=== PATIENT | male | born 1990 | race Caucasian/White ===

== ENCOUNTER 2017-09-22 14:51 | Emergency (ER) | payer BC, OTHER ==
[~2017-09-22] VITALS: Ht 180.3 cm; Wt 86.4 kg
[~2017-09-22 14:51] MED LIST: AMOX500T PO
[2017-09-22 14:53] VITALS: BP 127/76; PULSE 90; RESP 13; TEMP 98.6; O2SAT 97
[2017-09-22] MEDS ORDERED: DEPA250T2 PO (15:33)
[2017-09-22] MEDS ORDERED: ABIL10TA8 PO (15:33)
[2017-09-22 15:57] LABS: AUTOMATED NEUTROPHIL # 9.8 TH/MM3 (1.8-7.7); BASOPHIL # 0.1 TH/MM3 (0-0.2); BASOPHIL % 0.7 % (0.0-2.0); EOSINOPHIL # 0.2 TH/MM3 (0-0.4); EOSINOPHIL % 1.4 % (0.0-4.0); HEMATOCRIT 47.9 % (39.0-51.0); HEMOGLOBIN 16.5 GM/DL (13.0-17.0); LYMPH % 12.5 % (9.0-44.0); LYMPHOCYTE # 1.5 TH/MM3 (1.0-4.8); MEAN CELL VOLUME 90.5 FL (80.0-100.0); MEAN CORPUSCULAR HEMOGLOBIN 31.1 PG (27.0-34.0); MEAN CORPUSCULAR HGB CONC 34.4 % (32.0-36.0); MEAN PLATELET VOLUME 7.5 FL (7.0-11.0); MONO % 6.3 % (0.0-8.0); MONOCYTE # 0.8 TH/MM3 (0-0.9); NEUT % 79.1 % (16.0-70.0); PLATELET COUNT 279 TH/MM3 (150-450); RED CELL DISTRIBUTION WIDTH 13.9 % (11.6-17.2); WHITE BLOOD COUNT 12.3 TH/MM3 (4.0-11.0)
--- NOTE | 2017-09-22 15:57 | PD ---
HPI Chief Complaint: Psychiatric Symptoms Time Seen by Provider: 15:26 Travel History International Travel<30 days: No Contact w/Intl Traveler<30days: No Traveled to known affect area: No History of Present Illness HPI 26-year-old male presents to the emergency department complaining of suicidal ideation and a plan since this morning. He attempted suicide last night by taking 6 Unasyn and was hoping that he wouldn't wake up. His plan is to take something to make him go unconscious and vomit so he chokes on it. Has history of suicidal attempt by taking 24 pills of acetaminophen. Denies homicidal ideations. Symptoms are aggravated from getting kicked out of his house by his mother. He is out on [place] and is not supposed to be around his father, and his mother was allowing him to stay at the house, and she became paranoid and kicked him out. He reports history of schizophrenia and takes Depakote and Abilify. He reports that the dreams that says plans out his days for him the next day. He denies auditory or visual hallucinations. Denies illicit drug use. Reports occasional alcohol use and says his elbow use increases when he is in a depressed mood. He denies alcohol use today. Symptoms are aggravated by getting kicked out of the house. Onset this morning. No known relieving factors. No known allergies. Denies significant past medical history. History of schizophrenia. Has no other medical complaints. Denies chest pain, shortness breath, abdominal pain, nausea, vomiting, fevers. No primary care provider. No psychiatry. No other modifying factors or associated signs and symptoms. PFSH Past Medical History Anxiety: Yes Schizophrenia: Yes ?: Not Social History Alcohol Use: No Tobacco Use: Yes Substance Use: Yes Allergies-Medications (Allergen,Severity, Reaction): Coded Allergies: No Known Allergies (Unverified Adverse Reaction, Unknown, 09/22/17) Reported Meds & Prescriptions Reported Meds & Active Scripts Active Reported Abilify (Aripiprazole) 10 Mg Tab 10 Mg PO HS Depakote DR (Divalproex Sodium) 250 Mg Tabdr 250 Mg PO BID Amoxil (Amoxicillin) 500 Mg Tab 750 Mg PO BID Review of Systems Except as stated in HPI: all other systems reviewed are Neg Physical Exam Narrative GENERAL: Well-nourished, well-developed male patient, in no acute distress SKIN: Warm and dry. HEAD: Atraumatic. Normocephalic. EYES: Pupils equal and round. ENT: Mucosa pink and moist. NECK: Supple. Trachea midline. CARDIOVASCULAR: Regular rate and rhythm. No murmur appreciated. RESPIRATORY: No accessory muscle use. Clear to auscultation. Breath sounds equal bilaterally. GASTROINTESTINAL: Abdomen soft, non-tender, nondistended. Hepatic and splenic margins not palpable. Bowel sounds are active 4 quadrants. MUSCULOSKELETAL: No obvious deformities. No clubbing. No cyanosis. No edema. BACK: No CVA tenderness. NEUROLOGICAL: Awake and alert. Oriented 3. No obvious cranial nerve deficits. Motor grossly within normal limits. Normal speech. Moves all extremities. 5/5 strength to all extremities. PSYCHIATRIC: No delusional thought processes. No hallucinations. Data Data Last Documented VS Vital Signs Date Time Temp Pulse Resp B/P (MAP) Pulse Ox O2 Delivery O2 Flow Rate FiO2 09/22/17 14:53 98.6 90 13 127/76 (93) 97 Orders Orders Complete Blood Count With Diff (09/22/17 15:02) Comprehensive Metabolic Panel (09/22/17 15:02) Psych Screen (09/22/17 15:02) Drug Screen, Random Urine (09/22/17 15:02) Alcohol (Ethanol) (09/22/17 15:02) Salicylates (Aspirin) (09/22/17 15:02) Tylenol (Acetaminophen) (09/22/17 15:02) Thyroid Stimulating Hormone (09/22/17 15:26) Labs Laboratory Tests Test 09/22/17 15:25 White Blood Count 12.3 TH/MM3 Red Blood Count 5.30 MIL/MM3 Hemoglobin 16.5 GM/DL Hematocrit 47.9 % Mean Corpuscular Volume 90.5 FL Mean Corpuscular Hemoglobin 31.1 PG Mean Corpuscular Hemoglobin Concent 34.4 % Red Cell Distribution Width 13.9 % Platelet Count 279 TH/MM3 Mean Platelet Volume 7.5 FL Neutrophils (%) (Auto) 79.1 % Lymphocytes (%) (Auto) 12.5 % Monocytes (%) (Auto) 6.3 % Eosinophils (%) (Auto) 1.4 % Basophils (%) (Auto) 0.7 % Neutrophils # (Auto) 9.8 TH/MM3 Lymphocytes # (Auto) 1.5 TH/MM3 Monocytes # (Auto) 0.8 TH/MM3 Eosinophils # (Auto) 0.2 TH/MM3 Basophils # (Auto) 0.1 TH/MM3 CBC Comment DIFF FINAL Differential Comment MDM Medical Decision Making Medical Screen Exam Complete: Yes Emergency Medical Condition: Yes Medical Record Reviewed: Yes Differential Diagnosis Suicidal ideation, depression, medical clearance for psychological evaluation Narrative Course Patient presents voluntarily. Physical examination and vital signs are essentially unremarkable. Patient has no medical complaints to report. Psych screen has been ordered. If the laboratory results are unremarkable, the patient will be medically cleared for psychiatric evaluation and disposition. Diagnosis Primary Impression: Encounter for psychological evaluation Condition: Stable Crystal Albarado Sep 22, 2017 15:57
[2017-09-22 16:13] LABS: ALBUMIN 4.6 GM/DL (3.4-5.0); ALT (GPT) 32 U/L (12-78); AST (GOT) 21 U/L (15-37); BICARBONATE 23.3 MEQ/L (21.0-32.0); BLOOD UREA NITROGEN 9 MG/DL (7-18); CALCIUM 8.4 MG/DL (8.5-10.1); CHLORIDE 107 MEQ/L (98-107); CREATININE 0.89 MG/DL (0.60-1.30); GLOMERULAR FILTRATION RATE 103 ML/MIN (>89); GLUCOSE,RANDOM 76 MG/DL (74-106); SODIUM (NA) 140 MEQ/L (136-145)
[2017-09-22 16:15] LABS: ALKALINE PHOSPHATASE 81 U/L (45-117); TOTAL BILIRUBIN ADULT 1.3 MG/DL (0.2-1.0); TOTAL PROTEIN 8.3 GM/DL (6.4-8.2)
[2017-09-22 16:28] LABS: ACETAMINOPHEN LESS THAN 2.0 MCG/ML (10.0-30.0)
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
--- NOTE | 2017-09-22 21:00 | PD ---
Physical Exam Date Seen by Provider: Sep 22, 2017 Time Seen by Provider: 20:58 Narrative For full history and physical examination please see previous provider's notes. Data Data Last Documented VS Vital Signs Date Time Temp Pulse Resp B/P (MAP) Pulse Ox O2 Delivery O2 Flow Rate FiO2 09/22/17 14:53 98.6 90 13 127/76 (93) 97 Orders Orders Complete Blood Count With Diff (09/22/17 15:02) Comprehensive Metabolic Panel (09/22/17 15:02) Psych Screen (09/22/17 15:02) Drug Screen, Random Urine (09/22/17 15:02) Alcohol (Ethanol) (09/22/17 15:02) Salicylates (Aspirin) (09/22/17 15:02) Tylenol (Acetaminophen) (09/22/17 15:02) Valproic Acid (Depakene) (09/22/17 16:06) Thyroid Stimulating Hormone (09/22/17 15:25) Ed Discharge Order (09/22/17 20:57) Labs Laboratory Tests Test 09/22/17 15:25 09/22/17 16:30 White Blood Count 12.3 TH/MM3 Red Blood Count 5.30 MIL/MM3 Hemoglobin 16.5 GM/DL Hematocrit 47.9 % Mean Corpuscular Volume 90.5 FL Mean Corpuscular Hemoglobin 31.1 PG Mean Corpuscular Hemoglobin Concent 34.4 % Red Cell Distribution Width 13.9 % Platelet Count 279 TH/MM3 Mean Platelet Volume 7.5 FL Neutrophils (%) (Auto) 79.1 % Lymphocytes (%) (Auto) 12.5 % Monocytes (%) (Auto) 6.3 % Eosinophils (%) (Auto) 1.4 % Basophils (%) (Auto) 0.7 % Neutrophils # (Auto) 9.8 TH/MM3 Lymphocytes # (Auto) 1.5 TH/MM3 Monocytes # (Auto) 0.8 TH/MM3 Eosinophils # (Auto) 0.2 TH/MM3 Basophils # (Auto) 0.1 TH/MM3 CBC Comment DIFF FINAL Differential Comment Blood Urea Nitrogen 9 MG/DL Creatinine 0.89 MG/DL Random Glucose 76 MG/DL Total Protein 8.3 GM/DL Albumin 4.6 GM/DL Calcium Level 8.4 MG/DL Alkaline Phosphatase 81 U/L Aspartate Amino Transf (AST/SGOT) 21 U/L Alanine Aminotransferase (ALT/SGPT) 32 U/L Total Bilirubin 1.3 MG/DL Sodium Level 140 MEQ/L Potassium Level 4.0 MEQ/L Chloride Level 107 MEQ/L Carbon Dioxide Level 23.3 MEQ/L Anion Gap 10 MEQ/L Estimat Glomerular Filtration Rate 103 ML/MIN Thyroid Stimulating Hormone 3rd Gen 1.450 uIU/ML Salicylates Level LESS THAN 1.7 MG/DL Acetaminophen Level LESS THAN 2.0 MCG/ML Valproic Acid (Depakene) Level 42 MCG/ML Ethyl Alcohol Level LESS THAN 3 MG/DL Urine Opiates Screen NEG Urine Barbiturates Screen NEG Urine Amphetamines Screen NEG Urine Benzodiazepines Screen NEG Urine Cocaine Screen NEG Urine Cannabinoids Screen NEG MDM Medical Record Reviewed: Yes Supervised Visit with [facility]: No Interpretation(s) Laboratory Tests Test 09/22/17 15:25 09/22/17 16:30 White Blood Count 12.3 TH/MM3 Red Blood Count 5.30 MIL/MM3 Hemoglobin 16.5 GM/DL Hematocrit 47.9 % Mean Corpuscular Volume 90.5 FL Mean Corpuscular Hemoglobin 31.1 PG Mean Corpuscular Hemoglobin Concent 34.4 % Red Cell Distribution Width 13.9 % Platelet Count 279 TH/MM3 Mean Platelet Volume 7.5 FL Neutrophils (%) (Auto) 79.1 % Lymphocytes (%) (Auto) 12.5 % Monocytes (%) (Auto) 6.3 % Eosinophils (%) (Auto) 1.4 % Basophils (%) (Auto) 0.7 % Neutrophils # (Auto) 9.8 TH/MM3 Lymphocytes # (Auto) 1.5 TH/MM3 Monocytes # (Auto) 0.8 TH/MM3 Eosinophils # (Auto) 0.2 TH/MM3 Basophils # (Auto) 0.1 TH/MM3 CBC Comment DIFF FINAL Differential Comment Blood Urea Nitrogen 9 MG/DL Creatinine 0.89 MG/DL Random Glucose 76 MG/DL Total Protein 8.3 GM/DL Albumin 4.6 GM/DL Calcium Level 8.4 MG/DL Alkaline Phosphatase 81 U/L Aspartate Amino Transf (AST/SGOT) 21 U/L Alanine Aminotransferase (ALT/SGPT) 32 U/L Total Bilirubin 1.3 MG/DL Sodium Level 140 MEQ/L Potassium Level 4.0 MEQ/L Chloride Level 107 MEQ/L Carbon Dioxide Level 23.3 MEQ/L Anion Gap 10 MEQ/L Estimat Glomerular Filtration Rate 103 ML/MIN Thyroid Stimulating Hormone 3rd Gen 1.450 uIU/ML Salicylates Level LESS THAN 1.7 MG/DL Acetaminophen Level LESS THAN 2.0 MCG/ML Valproic Acid (Depakene) Level 42 MCG/ML Ethyl Alcohol Level LESS THAN 3 MG/DL Urine Opiates Screen NEG Urine Barbiturates Screen NEG Urine Amphetamines Screen NEG Urine Benzodiazepines Screen NEG Urine Cocaine Screen NEG Urine Cannabinoids Screen NEG Vital Signs Date Time Temp Pulse Resp B/P (MAP) Pulse Ox O2 Delivery O2 Flow Rate FiO2 09/22/17 14:53 98.6 90 13 127/76 (93) 97 Narrative Course Patient presented voluntarily to emergency department for psychiatric evaluation. He was seen and medically cleared. He was been evaluated by the psychiatric nurse practitioner who states patient is competent and suitable to be discharged. He can follow-up at [facility]. Patient stable for discharge. Diagnosis Primary Impression: Encounter for psychological evaluation [facility] Patient Instructions: General Instructions Additional Instruction: Follow-up at [facility] Return to emergency department for any new or worsening symptoms Med/Other Pt SpecificInfo: No Change to Meds Disposition: 01 DISCHARGE HOME Condition: Stable Chelly Deleon Sep 22, 2017 21:00
== END 2017-09-22 21:12 | disposition home or self-care (01) ==
LOC: NEPD 14:51
DX: F43.20 Adjustment disorder, unspecified (principal); F41.9 Anxiety disorder, unspecified; R45.851 Suicidal ideations; F20.9 Schizophrenia, unspecified; F12.90 Cannabis use, unspecified, uncomplicated; F15.90 Other stimulant use, unspecified, uncomplicated; F14.90 Cocaine use, unspecified, uncomplicated; Z59.0 Homelessness; Z72.0 Tobacco use
CPT/HCPCS: 80053; 80164; 80307; 84443; 85025; 99284